=== PATIENT | male | born 1995 | race African-American/Black ===

== ENCOUNTER 2017-10-15 20:06 | Emergency (ER) | payer OTHER ==
[2017-10-15 21:35] LABS: KETONE, URINE AUTO RFX NEGATIVE (NEGATIVE); MUCUS, URINE RFX SMALL (NEGATIVE); NITRITE, URINE AUTO RFX NEGATIVE (NEGATIVE); RBC, URINE AUTO RFX 2 /HPF (0-3); SPECIFIC GRAVITY UR AUTO RFX 1.023 (1.002-1.035); SQUAM EPITHELIAL CELL UR AURFX 0 /HPF (0-6)
[2017-10-15 21:40] LABS: LEUKOCYTE ESTERASE UR AUTO RFX 1+ (NEGATIVE); WBC, URINE AUTO RFX 29 /HPF (0-3)
[2017-10-15 22:47] LABS: HIV 1&2 SCREEN CENTAUR NEGATIVE (NEGATIVE)
[2017-10-15] MEDS ORDERED: LIDOCAINE 1% MDV 20ML VIAL As Ordered (22:47)
[2017-10-15 23:05] LABS: CHLAMYDIA DNA AMPLIFICATION POSITIVE (NEGATIVE); GC DNA AMPLIFICATION NEGATIVE (NEGATIVE)
[2017-10-15] MEDS: cefTRIAXone SOD 250 MG VIAL (J0696) IM (23:15)
[2017-10-15] MEDS: CIPROFLOXACIN 500 MG TAB PO (23:15)
[2017-10-15] MEDS: AZITHROMYCIN 250 MG TAB PO (23:15)
[2017-10-18 10:21] LABS: HEPATITIS B SURFACE ANTIBODY POSITIVE (POSITIVE)
[2017-10-18 10:31] LABS: HEPATITIS B SURFACE ANTIGEN NEGATIVE (NEGATIVE)
== END 2017-10-16 00:19 | disposition home or self-care (01) ==
LOC: M ED 10-16 00:19
DX: N30.00 Acute cystitis without hematuria (principal); A74.9 Chlamydial infection, unspecified; N50.89 Other specified disorders of the male genital organs
CPT/HCPCS: J0696

== ENCOUNTER 2018-05-29 15:14 | Emergency (ER) | payer OTHER ==
[2018-05-29] MEDS: ALBUTEROL SULFATE 2.5 MG/0.5 ML INH NEB SOLN INH (15:54)
== END 2018-05-29 16:20 | disposition home or self-care (01) ==
LOC: M ED 15:14
DX: J40 Bronchitis, not specified as acute or chronic (principal)
CPT/HCPCS: 94640

== ENCOUNTER 2019-05-21 19:43 | Emergency (ER) | payer OTHER ==
[~2019-05-21] VITALS: Ht 172.7 cm; Wt 84.1 kg
[~2019-05-21 19:43] MED LIST: CIPR-249 PO; PROAAER10 INH; TESS100C PO
[2019-05-21] MEDS ORDERED: IBUPROFEN 600 MG TAB PO ONE (21:00)
[2019-05-21 21:33] VITALS: BP 133/68
--- NOTE | 2019-05-22 06:10 | REP ---
Clinical: Trauma . Technique: AP, lateral, bilateral oblique views left ankle . Findings: Mild swelling is appreciated. No acute fracture or dislocation. Skeletal structures and joint spaces are intact and normal. Ankle mortise appears stable. No subcutaneous emphysema or radiodense foreign body. Impression: Mild swelling. No acute fracture or dislocation. Electronically Signed by Billy Porter MD 05/22/2019 06:02 A
== END 2019-05-21 21:35 | disposition home or self-care (01) ==
LOC: M ED 19:43
DX: S93.402A Sprain of unspecified ligament of left ankle, initial encounter (principal); X50.0XXA Overexertion from strenuous movement or load, initial encounter; Y92.9 Unspecified place or not applicable; Y93.9 Activity, unspecified